=== PATIENT | male | born 1950 | race African-American/Black ===

== ENCOUNTER → 2022-07-27 | Outpatient (CLI) | payer OTHER ==
[~2022-07-27] MED LIST: ACE1030 IN; AMLO1TAB23 PO; BUSP5TAB51 PO; CHOL200039 PO; CIPR500T4 PO; DIAZ10TA3 PO; FLUT0.05 NAS; HYDR-4798 PO; HYDR50TA32 PO; LOSA50TA46 PO; RELU120T PO; SERT-206 PO
[2022-07-27 07:25] LABS: Hematocrit 39.3 % (41.0-53.0); Hemoglobin 13.5 g/dL (13.5-17.5); Mean Corpuscular Hemoglobin 31.2 pg (28.0-32.0); Mean Corpuscular Hgb Conc. 34.3 g/dL (32.0-36.0); Mean Corpuscular Volume 90.9 fL (80.0-100.0); Red Blood Cells 4.32 10^6/uL (4.5-5.90); Red Cell Distribution Width 14.4 % (11.8-14.3); White Blood Cell 4.6 10^3/uL (4.4-10.8)
[2022-07-27 07:50] LABS: Basophils % (manual) 0 (0.0-2.0); Blast Cells 0; Metamyelocytes % 0; Myelocytes % 0; Promyelocytes % 0; Reactive Lymphocytes 0
[2022-07-27 08:15] LABS: Band Neutrophils % (manual) 3; Eosinophils % (manual) 4 (0-7); Lymphocytes % (manual) 58 (10.0-50.0); Monocytes % (manual) 8 (0-12)
[2022-07-27 08:25] LABS: Albumin 3.8 g/dL (3.4-5.0); Potassium 4.4 mmol/L (3.5-5.1)
[2022-07-27 08:33] LABS: BUN/Creatinine Ratio 15.4 (10.0-20.0); Bilirubin, Total 0.7 mg/dL (0.2-1.0)
== END | disposition home or self-care (01) ==
LOC: LAB 06:52
PROVIDERS: ATTEND Specialist
DX: C61 Malignant neoplasm of prostate (principal); E11.65 Type 2 diabetes mellitus with hyperglycemia; E11.22 Type 2 diabetes mellitus with diabetic chronic kidney disease; I12.9 Hypertensive chronic kidney disease with stage 1 through stage 4 chronic kidney disease, or unspecified chronic kidney disease; N18.9 Chronic kidney disease, unspecified; F41.9 Anxiety disorder, unspecified; F11.20 Opioid dependence, uncomplicated; J44.9 Chronic obstructive pulmonary disease, unspecified; F30.10 Manic episode without psychotic symptoms, unspecified; F41.3 Other mixed anxiety disorders; N39.3 Stress incontinence (female) (male); E11.69 Type 2 diabetes mellitus with other specified complication; E78.5 Hyperlipidemia, unspecified
CPT/HCPCS: 36415; 80053; 80061; 82043; 83036; 85007; 85027

== ENCOUNTER 2022-08-16 02:34 | Emergency (ER) | payer OTHER ==
[~2022-08-16] VITALS: Ht 182.9 cm; Wt 81.6 kg
[2022-08-16 02:46] VITALS: BP 132/87
[2022-08-16 03:15] LABS: Hematocrit 35.2 % (41.0-53.0); Hemoglobin 11.8 g/dL (13.5-17.5); Mean Corpuscular Hemoglobin 30.6 pg (28.0-32.0); Mean Corpuscular Hgb Conc. 33.6 g/dL (32.0-36.0); Mean Corpuscular Volume 91.3 fL (80.0-100.0); Red Blood Cells 3.86 10^6/uL (4.5-5.90); Red Cell Distribution Width 14.6 % (11.8-14.3); White Blood Cell 4.8 10^3/uL (4.4-10.8)
[2022-08-16 03:24] LABS: Band Neutrophils % (manual) 0; Basophils % (manual) 0 (0.0-2.0); Blast Cells 0; Metamyelocytes % 0; Myelocytes % 0; Promyelocytes % 0; Reactive Lymphocytes 0
[2022-08-16 03:27] LABS: Albumin 3.5 g/dL (3.4-5.0); Calcium 8.8 mg/dL (8.5-10.1); Magnesium 2.2 mg/dL (1.6-2.6); Potassium 3.6 mmol/L (3.5-5.1)
[2022-08-16 03:29] LABS: INR 1.16 (0.9-1.15); Partial Thromboplastin Time 29.6 SEC (24.5-34.5)
[2022-08-16 03:30] LABS: BUN/Creatinine Ratio 17.4 (10.0-20.0); Bilirubin, Total 0.7 mg/dL (0.2-1.0); Total Protein 6.4 g/dL (6.4-8.2)
[2022-08-16 03:57] LABS: Eosinophils % (manual) 3 (0-7); Lymphocytes % (manual) 61 (10.0-50.0); Monocytes % (manual) 7 (0-12)
[2022-08-16] MEDS ORDERED: ENOXAPARIN SOD 80 MG/0.8ML SYRINGE SC ONE (04:45)
== END 2022-08-16 04:52 | disposition left against medical advice (07) ==
LOC: ER 02:34 → EDBD 02:34 → ER 04:52
DX: D64.9 Anemia, unspecified (principal); R07.89 Other chest pain; R77.8 Other specified abnormalities of plasma proteins; D69.6 Thrombocytopenia, unspecified; I12.9 Hypertensive chronic kidney disease with stage 1 through stage 4 chronic kidney disease, or unspecified chronic kidney disease; E11.22 Type 2 diabetes mellitus with diabetic chronic kidney disease; N18.9 Chronic kidney disease, unspecified; Z79.899 Other long term (current) drug therapy; Z88.0 Allergy status to penicillin; Z88.5 Allergy status to narcotic agent
CPT/HCPCS: 36415; 71045; 80053; 83735; 83880; 84484; 85007; 85027; 85610; 85730; 93005; 99291

== ENCOUNTER → 2022-10-12 | Outpatient (CLI) | payer OTHER ==
[2022-10-12 07:40] LABS: Hematocrit 41.5 % (41.0-53.0); Hemoglobin 13.8 g/dL (13.5-17.5); Mean Corpuscular Hemoglobin 30.3 pg (28.0-32.0); Mean Corpuscular Hgb Conc. 33.2 g/dL (32.0-36.0); Mean Corpuscular Volume 91.4 fL (80.0-100.0); Red Blood Cells 4.54 10^6/uL (4.5-5.90); Red Cell Distribution Width 14.6 % (11.8-14.3); White Blood Cell 4.1 10^3/uL (4.4-10.8)
[2022-10-12 07:44] LABS: Band Neutrophils % (manual) 0; Basophils % (manual) 0 (0.0-2.0); Blast Cells 0; Metamyelocytes % 0; Myelocytes % 0; Promyelocytes % 0; Reactive Lymphocytes 0
[2022-10-12 08:33] LABS: Alanine Aminotransferase 37 U/L (7-40); Albumin 4.3 g/dL (3.2-4.8); Alkaline Phosphatase 68 U/L (46-116); Aspartate Aminotransferase 22 U/L (13-40); Bilirubin, Total 0.7 mg/dL (0.2-1.0); Blood Urea Nitrogen 16 mg/dL (9-23); Calcium 9.4 mg/dL (8.5-10.1); Chloride 108 mmol/L (98-107); Glucose 100 mg/dL (74-106); Potassium 4.2 mmol/L (3.5-5.1); Sodium 141 mmol/L (136-145)
[2022-10-12 08:34] LABS: Total Protein 6.9 g/dL (5.7-8.2)
[2022-10-12 13:06] LABS: Eosinophils % (manual) 6 (0-7); Lymphocytes % (manual) 64 (10.0-50.0); Monocytes % (manual) 11 (0-12); Platelet Estimate Decreased
== END | disposition home or self-care (01) ==
LOC: LAB 06:27
PROVIDERS: ATTEND Internal Medicine
DX: C61 Malignant neoplasm of prostate (principal)
CPT/HCPCS: 36415; 80053; 83615; 84153; 85007; 85027

== ENCOUNTER 2022-10-22 10:52 | Inpatient (IN) | payer OTHER ==
[~2022-10-22] VITALS: Ht 180.3 cm; Wt 72.8 kg
[2022-10-22] MEDS ORDERED: ASPirin 325 MG TAB PO ONE (11:00)
[2022-10-22] MEDS ORDERED: NITROGLYCERIN 0.4 MG SL TAB SL ONE (11:00)
[2022-10-22 11:36] LABS: Basophils # (auto) 0 10 ^3/uL (0-0.2); Eosinophils # (auto) 0.1 10 ^3/uL (0-0.8); Eosinophils % (auto) 1.2 % (0.0-7.0); Hematocrit 41.2 % (41.0-53.0); Hemoglobin 13.5 g/dL (13.5-17.5); Lymphocytes # (auto) 1.9 10 ^3/uL (0.4-5.4); Lymphocytes % (auto) 42.7 % (10.0-50.0); Mean Corpuscular Hemoglobin 30.1 pg (28.0-32.0); Mean Corpuscular Hgb Conc. 32.9 g/dL (32.0-36.0); Mean Corpuscular Volume 91.4 fL (80.0-100.0); Monocytes # (auto) 0.3 10 ^3/uL (0-1.3); Monocytes % (auto) 8.1 % (0.0-12.0); Nucleated Red Blood Cells % 0.1 %; Red Cell Distribution Width 14.2 % (11.8-14.3); White Blood Cell 4.3 10^3/uL (4.4-10.8)
[2022-10-22 11:49] LABS: Alanine Aminotransferase 47 U/L (7-40); Albumin 4.5 g/dL (3.2-4.8); Alkaline Phosphatase 68 U/L (46-116); Anion Gap 9.6 (5-15); Aspartate Aminotransferase 36 U/L (13-40); BUN/Creatinine Ratio 13.6 (10.0-20.0); Bilirubin, Total 1.6 mg/dL (0.2-1.0); Blood Urea Nitrogen 15 mg/dL (9-23); Carbon Dioxide 22.4 mmol/L (20-30); Chloride 109 mmol/L (98-107); Glucose 104 mg/dL (74-106); Potassium 3.7 mmol/L (3.5-5.1); Sodium 141 mmol/L (136-145); Total Protein 6.9 g/dL (5.7-8.2)
[2022-10-22 12:59] LABS: Urine Bacteria NONE SEEN /hpf (None Seen); Urine Blood TRACE /uL (Negative); Urine Clarity Clear (Clear); Urine Color Yellow (Yellow); Urine Mucus FEW (None Seen); Urine Protein, UAD TRACE (Negative); Urine Specific Gravity 1.027 (1.001-1.035); Urine Urobilinogen Normal (Negative); Urine WBC 1 /hpf (0 - 3)
[2022-10-22 13:09] VITALS: PULSE 79; RESP 25; O2SAT 100
[2022-10-22] MEDS ORDERED: HYDROmorphone HCL 2 MG/ML VL/or syr IV ONE (13:45)
[2022-10-22] MEDS ORDERED: NITROGLYCERIN 0.4 MG SL TAB SL PRN (14:30)
[2022-10-22] MEDS ORDERED: SODIUM CHLORIDE 0.9% 1,000 ML IV SCH (14:30)
[2022-10-22] MEDS ORDERED: MORPHINE SULFATE INJ 2 MG/ml SYRG IV PRN (14:30)
[2022-10-22] MEDS ORDERED: ACETAMINOPHEN 325 MG TAB PO PRN (14:30)
[2022-10-22 15:09] LABS: Triglycerides 52 mg/dL (< 150)
[2022-10-22 15:10] LABS: LDL Cholesterol 66 mg/dL (< 100)
[2022-10-22 15:11] LABS: Cholesterol 174 mg/dL (< 200); HDL Cholesterol 85 mg/dL (40-59)
[2022-10-22] MEDS ORDERED: HEPARIN SODIUM (PORCINE) 5000 UNITS/ML 1ML VIAL IV ONE (15:45)
[2022-10-22] MEDS ORDERED: ALBUTEROL SULF 2.5 MG/0.5ML(0.5%) NEB SOLN NEB PRN (15:45)
[2022-10-22] MEDS ORDERED: HEPARIN DRIP/D5W 100UNITS/ML 250 ML IV SCH (15:45)
[2022-10-22] MEDS ORDERED: DEXTROSE (50%) 50ML SYRG IV PRN (15:45)
[2022-10-22 15:48] VITALS: BP 156/102; TEMP 98.8; O2SAT 99
[2022-10-22] MEDS ORDERED: IOHEXOL 350 MG/ML 100ML IJ ONE (16:22)
[2022-10-22] MEDS: InsuLIN REG 1unit/0.01ml Soln (100units/ml) SC SCH ×2 (17:00→22:00)
[2022-10-22] MEDS: ACCU-CHEK COMFORT CURVE STRIP VI SCH ×2 (17:00→23:35)
[2022-10-22] MEDS ORDERED: CLOPIDOGREL 300 MG TAB PO ONE (17:00)
[2022-10-22 17:57] LABS: INR 1.26 (0.9-1.15); Partial Thromboplastin Time 27.6 SEC (24.5-34.5)
[2022-10-22 19:48] VITALS: PULSE 65; RESP 12; O2SAT 96
[2022-10-22] MEDS ORDERED: ATORVASTATIN 20 MG TAB PO SCH (22:00)
[2022-10-22] MEDS: busPIRone HCL 10 MG TAB PO SCH (23:47)
[2022-10-23] VITALS (8 sets, daily range): BP systolic 128–144; BP diastolic 83–97; PULSE 75–102; RESP 17–20; TEMP 97.7–98.3; O2SAT 97–100
[2022-10-23 00:37] LABS: INR 1.13 (0.9-1.15); Partial Thromboplastin Time 59.2 SEC (24.5-34.5); Prothrombin Time 11.8 sec (9.3-11.8)
[2022-10-23] MEDS: InsuLIN REG 1unit/0.01ml Soln (100units/ml) SC SCH ×3 (06:22→17:00)
[2022-10-23] MEDS: ACCU-CHEK COMFORT CURVE STRIP VI SCH ×3 (06:22→17:32)
[2022-10-23 07:15] LABS: Basophils # (auto) 0 10 ^3/uL (0-0.2); Basophils % (auto) 0.6 % (0.0-2.0); Eosinophils # (auto) 0.1 10 ^3/uL (0-0.8); Eosinophils % (auto) 1.7 % (0.0-7.0); Hematocrit 47.3 % (41.0-53.0); Hemoglobin 15.4 g/dL (13.5-17.5); Lymphocytes # (auto) 3.7 10 ^3/uL (0.4-5.4); Lymphocytes % (auto) 52.7 % (10.0-50.0); Mean Corpuscular Hemoglobin 30.3 pg (28.0-32.0); Mean Corpuscular Hgb Conc. 32.6 g/dL (32.0-36.0); Mean Corpuscular Volume 93.1 fL (80.0-100.0); Monocytes # (auto) 0.5 10 ^3/uL (0-1.3); Monocytes % (auto) 6.5 % (0.0-12.0); Neutrophils # (auto) 2.7 10 ^3/uL (1.6-8.6); Neutrophils % (auto) 38.5 % (37.0-80.0); Nucleated Red Blood Cells % 0.3 %; Red Blood Cells 5.08 10^6/uL (4.5-5.90); Red Cell Distribution Width 14.6 % (11.8-14.3); White Blood Cell 7.1 10^3/uL (4.4-10.8)
[2022-10-23] MEDS ORDERED: HEPARIN DRIP/D5W 100UNITS/ML 250 ML IV SCH (08:00)
[2022-10-23 08:45] LABS: Alanine Aminotransferase 48 U/L (7-40); Alkaline Phosphatase 77 U/L (46-116); Anion Gap 10.8 (5-15); BUN/Creatinine Ratio 13.5 (10.0-20.0); Blood Urea Nitrogen 15 mg/dL (9-23); Calcium 10.1 mg/dL (8.5-10.1); Carbon Dioxide 21.2 mmol/L (20-30); Chloride 107 mmol/L (98-107); Glucose 116 mg/dL (74-106); Potassium 3.7 mmol/L (3.5-5.1); Sodium 139 mmol/L (136-145)
[2022-10-23 08:46] LABS: Albumin 4.9 g/dL (3.2-4.8); Aspartate Aminotransferase 45 U/L (13-40); Total Protein 7.7 g/dL (5.7-8.2)
[2022-10-23] MEDS: SERTRALINE HCL 50 MG TAB PO SCH ×2 (08:56→09:13)
[2022-10-23] MEDS: busPIRone HCL 10 MG TAB PO SCH (08:57)
[2022-10-23] MEDS: LOSARTAN POTASSIUM 50 MG TAB PO SCH ×2 (08:57→09:13)
[2022-10-23] MEDS ORDERED: SERT-376 PO (09:21)
[2022-10-23] MEDS ORDERED: amLODIPine BESYLATE 5 MG TAB PO SCH (10:00)
[2022-10-23] MEDS ORDERED: CHOLECALCIFEROL (VITD3) 2,000 UNIT CAP/TAB PO SCH (10:00)
[2022-10-23] MEDS ORDERED: RELUGOLIX 120 MG PO SCH (10:00)
[2022-10-23] MEDS ORDERED: CLOPIDOGREL BISULFATE 75 MG TAB PO SCH (10:00)
[2022-10-23] MEDS ORDERED: ASPirin 81 mg TAB PO SCH (10:00)
[2022-10-23] MEDS ORDERED: SERTRALINE HCL 50 MG TAB PO SCH (10:45)
[2022-10-23] MEDS ORDERED: diazePAM 2 MG TAB PO ONE (10:45)
[2022-10-23] MEDS ORDERED: diazePAM 5 MG TAB PO ONE ×2 (11:45→18:00)
[2022-10-23 17:28] LABS: INR 1.14 (0.9-1.15); Partial Thromboplastin Time 69.9 SEC (24.5-34.5); Prothrombin Time 11.9 sec (9.3-11.8)
[2022-10-23] MEDS ORDERED: diazePAM 5 MG TAB PO SCH (22:00)
[2022-10-28] MEDS ORDERED: ATOR10TA PO (22:31)
[2022-10-29] MEDS ORDERED: BUSP10TA90 PO (11:09)
== END 2022-10-23 19:50 | disposition left against medical advice (07) | DRG 280 ==
LOC: EDBD 10:52 → ER 10:52 → TELE 14:35 → TELE-EAST 21:53
PROVIDERS: ADMIT Nurse Practitioner Family; ATTEND Nurse Practitioner Family
DX: I21.4 Non-ST elevation (NSTEMI) myocardial infarction (principal); J96.01 Acute respiratory failure with hypoxia; E11.9 Type 2 diabetes mellitus without complications; F43.10 Post-traumatic stress disorder, unspecified; F12.90 Cannabis use, unspecified, uncomplicated; I10 Essential (primary) hypertension; C67.9 Malignant neoplasm of bladder, unspecified; C61 Malignant neoplasm of prostate; Z53.29 Procedure and treatment not carried out because of patient's decision for other reasons; Z88.0 Allergy status to penicillin; Z88.6 Allergy status to analgesic agent; Z79.4 Long term (current) use of insulin; Z82.49 Family history of ischemic heart disease and other diseases of the circulatory system; Z85.51 Personal history of malignant neoplasm of bladder; Z85.46 Personal history of malignant neoplasm of prostate
CPT/HCPCS: 36415; 71045; 71275; 80053; 80061; 81001; 82962; 83036; 83880; 84443; 84484; 85025; 85379; 85610; 85730; 87070; 87205; 93005; 93306; 93970; G0378

== ENCOUNTER 2022-11-10 14:01 | Inpatient (IN) | payer OTHER ==
[~2022-11-10] VITALS: Ht 182.9 cm; Wt 79.4 kg
[~2022-11-10 14:01] MED LIST changes: -ACE1030 IN; +ASPI-325 PO; +ATOR10TA PO; +BUSP10TA90 PO; -BUSP5TAB51 PO; -CHOL200039 PO; -CIPR500T4 PO; -FLUT0.05 NAS; -HYDR50TA32 PO; -LOSA50TA46 PO; -SERT-206 PO
[2022-11-10 14:28] LABS: Hematocrit 37.2 % (41.0-53.0); Hemoglobin 12.6 g/dL (13.5-17.5); Mean Corpuscular Volume 91.3 fL (80.0-100.0); Red Blood Cells 4.07 10^6/uL (4.5-5.90); Red Cell Distribution Width 14.2 % (11.8-14.3); White Blood Cell 4.7 10^3/uL (4.4-10.8)
[2022-11-10 14:32] LABS: Band Neutrophils % (manual) 0; Basophils % (manual) 0 (0.0-2.0); Blast Cells 0; Metamyelocytes % 0; Myelocytes % 0; Promyelocytes % 0; Reactive Lymphocytes 0
[2022-11-10 14:45] LABS: INR 1.11 (0.9-1.15); Partial Thromboplastin Time 29.1 SEC (24.5-34.5); Prothrombin Time 11.6 sec (9.3-11.8)
[2022-11-10 15:12] LABS: Magnesium 1.9 mg/dL (1.6-2.6)
[2022-11-10 15:15] LABS: Anion Gap 4 (5-15); Blood Urea Nitrogen 17 mg/dL (9-23); Carbon Dioxide 30 mmol/L (20-30); Chloride 106 mmol/L (98-107); Glucose 123 mg/dL (74-106); Potassium 3.7 mmol/L (3.5-5.1); Sodium 140 mmol/L (136-145)
[2022-11-10 15:16] LABS: Alanine Aminotransferase 23 U/L (7-40); Albumin 4.3 g/dL (3.2-4.8); Alkaline Phosphatase 62 U/L (46-116); Aspartate Aminotransferase 18 U/L (13-40); Bilirubin, Total 0.6 mg/dL (0.2-1.0); Calcium 9.4 mg/dL (8.7-10.4); Total Protein 6.8 g/dL (5.7-8.2)
[2022-11-10 15:56] LABS: Anisocytosis Slight; Eosinophils % (manual) 1 (0-7); Lymphocytes % (manual) 49 (10.0-50.0); Monocytes % (manual) 10 (0-12); Platelet Estimate Adequate
[2022-11-10 15:58] VITALS: PULSE 59; RESP 17; O2SAT 100
[2022-11-10] MEDS ORDERED: NITROGLYCERIN 0.4 MG SL TAB SL PRN (16:30)
[2022-11-10] MEDS ORDERED: ONDANSETRON HCL 4 MG/2 ML VIAL IV PRN (16:30)
[2022-11-10] MEDS ORDERED: DOCUSATE SOD 100 MG CAP PO PRN (16:30)
[2022-11-10] MEDS ORDERED: DEXTROSE (50%) 50ML SYRG IV PRN (16:30)
[2022-11-10] MEDS ORDERED: ACETAMINOPHEN 325 MG TAB PO PRN (16:30)
[2022-11-10] MEDS ORDERED: hydrALAZINE HCL 20 MG/ML VL IV PRN (16:30)
[2022-11-10] MEDS ORDERED: ASPirin 81 mg TAB PO ONE (16:30)
[2022-11-10] MEDS ORDERED: HYDROcodone-ACET 5/325MG TAB PO PRN (16:30)
[2022-11-10] MEDS: InsuLIN REG 1unit/0.01ml Soln (100units/ml) SC SCH ×2 (16:56→22:00)
[2022-11-10] MEDS: ACCU-CHEK COMFORT CURVE STRIP VI SCH ×2 (16:56→22:58)
[2022-11-10 19:40] VITALS: PULSE 62; RESP 12; O2SAT 97
[2022-11-10] MEDS ORDERED: QUET100T47 PO (21:28)
[2022-11-10] MEDS ORDERED: SERT-206 PO (21:28)
[2022-11-10] MEDS ORDERED: CHOL500021 OR (21:28)
[2022-11-10] MEDS ORDERED: METF-370 PO (21:28)
[2022-11-10] MEDS ORDERED: HYDR50TA32 PO (21:28)
[2022-11-10] MEDS ORDERED: AMLO1TAB22 PO (21:28)
[2022-11-10 22:00] VITALS: BP 108/63; PULSE 70; RESP 14; TEMP 98.1; O2SAT 98
[2022-11-10] MEDS ORDERED: ATORVASTATIN 20 MG TAB PO SCH (22:00)
[2022-11-10] MEDS: SODIUM CHLOR 0.9% PF (SALINE LOCK) 10ML VIAL/SYR IV SCH (22:00)
[2022-11-10 22:03] VITALS: PULSE 60; RESP 14; O2SAT 99
[2022-11-10] MEDS: FAMOTIDINE (10MG/ML) 2ML VL IV SCH (22:58)
[2022-11-11] VITALS (7 sets, daily range): BP systolic 127–147; BP diastolic 83–88; PULSE 58–78; RESP 14–20; TEMP 97.6–98.2; O2SAT 94–99
[2022-11-11] MEDS ORDERED: busPIRone HCL 10 MG TAB PO ONE
[2022-11-11] MEDS ORDERED: PNEUMOCOCCAL VACC POLYS 25 MCG/0.5 ML VIAL IM ONE (02:15)
[2022-11-11 03:30] LABS: Urine Bacteria NONE SEEN /hpf (None Seen); Urine Blood Negative /uL (Negative); Urine Clarity Clear (Clear); Urine Color Colorless (Yellow); Urine Protein, UAD Negative (Negative); Urine Specific Gravity 1.007 (1.001-1.035); Urine Urobilinogen Normal (Negative); Urine WBC <1 /hpf (0 - 3); Urine pH 6.5 (5.0-8.0)
[2022-11-11] MEDS: SODIUM CHLOR 0.9% PF (SALINE LOCK) 10ML VIAL/SYR IV SCH ×3 (06:00→21:55)
[2022-11-11] MEDS: ACCU-CHEK COMFORT CURVE STRIP VI SCH ×4 (06:41→21:54)
[2022-11-11] MEDS: InsuLIN REG 1unit/0.01ml Soln (100units/ml) SC SCH ×4 (06:41→21:54)
[2022-11-11 06:59] LABS: Basophils # (auto) 0 10 ^3/uL (0-0.2); Eosinophils # (auto) 0.1 10 ^3/uL (0-0.8); Hemoglobin 14.8 g/dL (13.5-17.5); Lymphocytes # (auto) 2.6 10 ^3/uL (0.4-5.4); Mean Corpuscular Hgb Conc. 33.6 g/dL (32.0-36.0); Mean Corpuscular Volume 92.2 fL (80.0-100.0); Monocytes # (auto) 0.5 10 ^3/uL (0-1.3); Monocytes % (auto) 9.9 % (0.0-12.0); Neutrophils # (auto) 1.5 10 ^3/uL (1.6-8.6); Neutrophils % (auto) 32.1 % (37.0-80.0); Nucleated Red Blood Cells % 0.3 %; Red Blood Cells 4.78 10^6/uL (4.5-5.90); Red Cell Distribution Width 14.4 % (11.8-14.3); White Blood Cell 4.8 10^3/uL (4.4-10.8)
[2022-11-11 07:03] LABS: Alanine Aminotransferase 26 U/L (7-40); Albumin 4.4 g/dL (3.2-4.8); Alkaline Phosphatase 60 U/L (46-116); Anion Gap 7 (5-15); Aspartate Aminotransferase 26 U/L (13-40); BUN/Creatinine Ratio 12.9 (10.0-20.0); Blood Urea Nitrogen 12 mg/dL (9-23); Calcium 9.5 mg/dL (8.5-10.1); Carbon Dioxide 26 mmol/L (20-30); Chloride 109 mmol/L (98-107); Glucose 96 mg/dL (74-106); Sodium 142 mmol/L (136-145)
[2022-11-11 07:04] LABS: Bilirubin, Total 1.1 mg/dL (0.2-1.0); Total Protein 7.1 g/dL (5.7-8.2)
[2022-11-11] MEDS: ASPirin 81 mg TAB PO SCH (09:21)
[2022-11-11] MEDS: FAMOTIDINE (10MG/ML) 2ML VL IV SCH (09:21)
[2022-11-11 10:49] LABS: Hepatitis B Surface Antibody Positive (Negative)
[2022-11-11] MEDS ORDERED: diazePAM 2 MG TAB PO SCH (11:15)
[2022-11-11 11:22] LABS: Hepatitis C Antibody Negative (Negative)
[2022-11-11] MEDS: SERTRALINE HCL 50 MG TAB PO SCH (11:57)
[2022-11-11] MEDS: busPIRone HCL 10 MG TAB PO SCH ×2 (11:57→21:52)
[2022-11-11] MEDS: diazePAM 5 MG TAB PO SCH (21:53)
[2022-11-11] MEDS: COLCHICINE 0.6 MG CAP PO SCH (21:53)
[2022-11-11] MEDS: amLODIPine BESYLATE 5 MG TAB PO SCH (21:53)
[2022-11-11] MEDS ORDERED: hydrOXYzine 25 MG TAB or CAP PO SCH (22:00)
[2022-11-11] MEDS: QUEtiapine FUMARATE 25 MG TAB PO SCH ×2 (22:00→22:26)
[2022-11-12 05:00] VITALS: BP 119/75; PULSE 58; RESP 14; TEMP 98.4; O2SAT 99
[2022-11-12] MEDS: ACCU-CHEK COMFORT CURVE STRIP VI SCH ×2 (06:18→12:32)
[2022-11-12] MEDS: InsuLIN REG 1unit/0.01ml Soln (100units/ml) SC SCH ×2 (06:18→11:30)
[2022-11-12] MEDS: SODIUM CHLOR 0.9% PF (SALINE LOCK) 10ML VIAL/SYR IV SCH ×2 (06:18→12:33)
[2022-11-12 07:30] VITALS: BP 145/84; PULSE 66; TEMP 36.9
[2022-11-12 08:00] VITALS: BP 151/93; PULSE 58; RESP 17; TEMP 98.6; O2SAT 100
[2022-11-12] MEDS: ASPirin 81 mg TAB PO SCH (09:59)
[2022-11-12] MEDS: busPIRone HCL 10 MG TAB PO SCH (09:59)
[2022-11-12] MEDS: diazePAM 5 MG TAB PO SCH (09:59)
[2022-11-12] MEDS: SERTRALINE HCL 50 MG TAB PO SCH (10:00)
[2022-11-12] MEDS: amLODIPine BESYLATE 5 MG TAB PO SCH (10:00)
[2022-11-12] MEDS ORDERED: ATORVASTATIN 20 MG TAB PO SCH (10:00)
[2022-11-12] MEDS: COLCHICINE 0.6 MG CAP PO SCH (10:00)
[2022-11-12] MEDS ORDERED: LOSARTAN POTASSIUM 50 MG TAB PO SCH (10:15)
[2022-11-12 13:00] VITALS: BP 131/73; PULSE 78; RESP 16; TEMP 97.8; O2SAT 100
[2022-11-12 13:41] VITALS: BP 119/80; TEMP 37
== END 2022-11-12 14:50 | disposition home or self-care (01) | DRG 281 ==
LOC: ER 14:01 → TELE 16:34 → TELE-WESTW 21:05
PROVIDERS: ADMIT Nurse Practitioner Family; ATTEND Family Medicine
DX: I51.4 Myocarditis, unspecified (principal); I21.A1 Myocardial infarction type 2; J44.1 Chronic obstructive pulmonary disease with (acute) exacerbation; E11.65 Type 2 diabetes mellitus with hyperglycemia; E78.00 Pure hypercholesterolemia, unspecified; I10 Essential (primary) hypertension; F41.9 Anxiety disorder, unspecified; I25.2 Old myocardial infarction; Z79.899 Other long term (current) drug therapy; Z88.5 Allergy status to narcotic agent; Z88.0 Allergy status to penicillin; Z82.49 Family history of ischemic heart disease and other diseases of the circulatory system; Z85.46 Personal history of malignant neoplasm of prostate; Z90.49 Acquired absence of other specified parts of digestive tract
CPT/HCPCS: 36415; 71045; 80053; 81001; 82962; 83735; 83880; 84443; 84484; 85007; 85025; 85027; 85610; 85730; 86706; 86803; 87081; 93005; 97163; 99291; G0378; J3490

== ENCOUNTER → 2022-12-07 | Outpatient (CLI) | payer OTHER ==
[~2022-12-07] MED LIST changes: +AMLO1TAB22 PO; -AMLO1TAB23 PO; +CHOL500021 OR; +HYDR50TA32 PO; +METF-370 PO; +QUET100T47 PO; +SERT-206 PO
[2022-12-07 07:22] LABS: Hemoglobin 14.2 g/dL (13.5-17.5); Mean Corpuscular Hemoglobin 30.7 pg (28.0-32.0); Mean Corpuscular Hgb Conc. 33.8 g/dL (32.0-36.0); Mean Corpuscular Volume 90.8 fL (80.0-100.0); Red Blood Cells 4.63 10^6/uL (4.5-5.90); Red Cell Distribution Width 14.3 % (11.8-14.3); White Blood Cell 5.1 10^3/uL (4.4-10.8)
[2022-12-07 07:28] LABS: Band Neutrophils % (manual) 0; Basophils % (manual) 0 (0.0-2.0); Blast Cells 0; Metamyelocytes % 0; Myelocytes % 0; Promyelocytes % 0; Reactive Lymphocytes 0
[2022-12-07 07:49] LABS: Eosinophils % (manual) 5 (0-7); Lymphocytes % (manual) 57 (10.0-50.0); Monocytes % (manual) 11 (0-12); Platelet Estimate Decreased
[2022-12-07 07:50] LABS: Giant Platelets Few
[2022-12-07 07:51] LABS: Large Platelets MODERATE; RBC Morphology Normal
[2022-12-07 08:00] LABS: Alanine Aminotransferase 73 U/L (7-40); Alkaline Phosphatase 83 U/L (46-116); Anion Gap 7 (5-15); BUN/Creatinine Ratio 16.7 (10.0-20.0); Blood Urea Nitrogen 17 mg/dL (9-23); Calcium 9.9 mg/dL (8.5-10.1); Carbon Dioxide 27 mmol/L (20-30); Chloride 106 mmol/L (98-107); Glucose 92 mg/dL (74-106); Potassium 3.9 mmol/L (3.5-5.1); Sodium 140 mmol/L (136-145)
[2022-12-07 08:02] LABS: Albumin 4.6 g/dL (3.2-4.8); Aspartate Aminotransferase 57 U/L (13-40); Bilirubin, Total 1.1 mg/dL (0.2-1.0); Total Protein 7.4 g/dL (5.7-8.2)
== END | disposition home or self-care (01) ==
LOC: LAB 07:04
PROVIDERS: ATTEND Internal Medicine
DX: C61 Malignant neoplasm of prostate (principal); Z88.0 Allergy status to penicillin; Z88.8 Allergy status to other drugs, medicaments and biological substances
CPT/HCPCS: 36415; 80053; 83615; 84153; 85007; 85027

== ENCOUNTER → 2023-02-21 | Outpatient (CLI) | payer OTHER ==
[2023-02-21 07:35] LABS: Basophils # (auto) 0 10 ^3/uL (0-0.2); Basophils % (auto) 0.8 % (0.0-2.0); Eosinophils # (auto) 0.2 10 ^3/uL (0-0.8); Eosinophils % (auto) 4.7 % (0.0-7.0); Hematocrit 41.6 % (41.0-53.0); Hemoglobin 13.6 g/dL (13.5-17.5); Lymphocytes # (auto) 2.6 10 ^3/uL (0.4-5.4); Lymphocytes % (auto) 54.2 % (10.0-50.0); Mean Corpuscular Hemoglobin 29.9 pg (28.0-32.0); Mean Corpuscular Hgb Conc. 32.8 g/dL (32.0-36.0); Mean Corpuscular Volume 91.2 fL (80.0-100.0); Monocytes # (auto) 0.3 10 ^3/uL (0-1.3); Monocytes % (auto) 6.9 % (0.0-12.0); Neutrophils # (auto) 1.6 10 ^3/uL (1.6-8.6); Neutrophils % (auto) 33.4 % (37.0-80.0); Red Blood Cells 4.56 10^6/uL (4.5-5.90); Red Cell Distribution Width 14.3 % (11.8-14.3); White Blood Cell 4.7 10^3/uL (4.4-10.8)
[2023-02-21 08:03] LABS: Alanine Aminotransferase 39 U/L (7-40); Alkaline Phosphatase 81 U/L (46-116); Calcium 9.7 mg/dL (8.5-10.1); Carbon Dioxide 27 mmol/L (20-30); Chloride 107 mmol/L (98-107); Triglycerides 42 mg/dL (< 150)
[2023-02-21 08:04] LABS: Albumin 4.5 g/dL (3.2-4.8); Anion Gap 6 (5-15); Aspartate Aminotransferase 30 U/L (13-40); Bilirubin, Total 0.7 mg/dL (0.2-1.0); Blood Urea Nitrogen 17 mg/dL (9-23); Cholesterol 139 mg/dL (< 200); Glucose 97 mg/dL (74-106); HDL Cholesterol 72 mg/dL (40-59); LDL Cholesterol 51 mg/dL (< 100); Potassium 3.9 mmol/L (3.5-5.1); Sodium 140 mmol/L (136-145); Total Protein 7.1 g/dL (5.7-8.2)
== END | disposition home or self-care (01) ==
LOC: LAB 06:59
PROVIDERS: ATTEND Specialist
DX: E11.65 Type 2 diabetes mellitus with hyperglycemia (principal); I10 Essential (primary) hypertension
CPT/HCPCS: 36415; 80053; 80061; 82043; 83036; 84153; 85025

== ENCOUNTER 2023-04-06 10:31 | Emergency (ER) | payer OTHER ==
[~2023-04-06] VITALS: Ht 182.9 cm; Wt 80.3 kg
[2023-04-06 11:08] VITALS: BP 108/81; PULSE 76; RESP 18; O2SAT 97
[2023-04-06 11:24] LABS: Urine WBC None Seen /hpf (0 - 3)
[2023-04-06 12:46] LABS: Urine Bacteria NONE SEEN /hpf (None Seen); Urine Blood Negative /uL (Negative); Urine Clarity Clear (Clear); Urine Protein, UAD Negative (Negative); Urine Specific Gravity 1.012 (1.001-1.035); Urine Urobilinogen Normal (Negative); Urine pH 5.5 (5.0-8.0)
[2023-04-06 12:47] LABS: Urine Color Straw (Yellow)
== END 2023-04-06 11:38 | disposition left against medical advice (07) ==
LOC: ER 10:31
DX: M54.6 Pain in thoracic spine (principal); R51.9 Headache, unspecified; R31.9 Hematuria, unspecified; Z53.21 Procedure and treatment not carried out due to patient leaving prior to being seen by health care provider; W18.39XA Other fall on same level, initial encounter; Y93.89 Activity, other specified; Y92.89 Other specified places as the place of occurrence of the external cause; Y99.8 Other external cause status
CPT/HCPCS: 81001

== ENCOUNTER 2023-06-05 15:26 | Emergency (ER) | payer OTHER ==
[~2023-06-05] VITALS: Ht 182.9 cm; Wt 79.3 kg
[2023-06-05 15:38] VITALS: BP 145/93; RESP 16; O2SAT 100
[2023-06-05 15:57] LABS: Basophils # (auto) 0 10 ^3/uL (0-0.2); Basophils % (auto) 0.8 % (0.0-2.0); Eosinophils # (auto) 0.1 10 ^3/uL (0-0.8); Eosinophils % (auto) 1.8 % (0.0-7.0); Hematocrit 44.1 % (41.0-53.0); Hemoglobin 14.3 g/dL (13.5-17.5); Lymphocytes # (auto) 3.1 10 ^3/uL (0.4-5.4); Lymphocytes % (auto) 51.4 % (10.0-50.0); Mean Corpuscular Hemoglobin 30.2 pg (28.0-32.0); Mean Corpuscular Hgb Conc. 32.5 g/dL (32.0-36.0); Monocytes # (auto) 0.4 10 ^3/uL (0-1.3); Monocytes % (auto) 6.7 % (0.0-12.0); Neutrophils # (auto) 2.3 10 ^3/uL (1.6-8.6); Neutrophils % (auto) 39.3 % (37.0-80.0); Nucleated Red Blood Cells % 0.1 %; Red Blood Cells 4.74 10^6/uL (4.5-5.90); Red Cell Distribution Width 14.8 % (11.8-14.3)
[2023-06-05 16:10] LABS: Alanine Aminotransferase 40 U/L (7-40); Albumin 4.6 g/dL (3.2-4.8); Alkaline Phosphatase 82 U/L (46-116); Anion Gap 11 (5-15); Aspartate Aminotransferase 32 U/L (13-40); BUN/Creatinine Ratio 8.8 (10.0-20.0); Blood Urea Nitrogen 9 mg/dL (9-23); Calcium 9.9 mg/dL (8.5-10.1); Carbon Dioxide 21 mmol/L (20-30); Chloride 108 mmol/L (98-107); Glucose 105 mg/dL (74-106); Potassium 3.4 mmol/L (3.5-5.1); Sodium 140 mmol/L (136-145)
[2023-06-05 16:11] LABS: Total Protein 7.1 g/dL (5.7-8.2)
[2023-06-05 16:25] VITALS: PULSE 69
[2023-06-05] MEDS ORDERED: NITROGLYCERIN 0.4 MG SL TAB SL ONE (17:15)
== END 2023-06-05 20:04 | disposition left against medical advice (07) ==
LOC: ER 15:26
DX: R07.89 Other chest pain (principal); R11.0 Nausea; I10 Essential (primary) hypertension; I25.2 Old myocardial infarction; E11.9 Type 2 diabetes mellitus without complications; E78.5 Hyperlipidemia, unspecified; J44.9 Chronic obstructive pulmonary disease, unspecified; Z90.49 Acquired absence of other specified parts of digestive tract; Z79.82 Long term (current) use of aspirin; Z79.899 Other long term (current) drug therapy; Z88.0 Allergy status to penicillin; Z88.5 Allergy status to narcotic agent
CPT/HCPCS: 36415; 71046; 80053; 84484; 85025; 93005